=== PATIENT | female | born 1930 | race Two or more races ===

== ENCOUNTER 2018-04-14 14:53 | Emergency (ER) | payer OTHER ==
[~2018-04-14] VITALS: Ht 160 cm; Wt 58.1 kg
[~2018-04-14 14:53] MED LIST: ADALAT CC30 MG PO; APRESOLINE 10MG10 MG PO; ARICEPT10 MG PO; ARICEPT5 MG; ATORVASTATIN CA10 MG; ATROVENT 00.5 MG/2.5 IH; BENZONATATE100 MG PO; Bumex PO; CEFTIN500 MG PO; CLONAZEPAM0.5 MG PO; CLOPIDOGREL BIS75 MG PO; COUMADIN3 MG; COUMAdin PO; COZAAR25 MG; COZAAR50 MG PO; CRESTOR10 MG PO; Cozaar PO; DIABETIC T100 MG/51 PO; DIAZEPAM10 MG PO; ECOTRIN81 MG PO; FAMOTIDINE20 MG/2 M1 IV; FUROSEMIDE40 MG PO; GABAPENTIN100 MG; GUAIFENESI100 MG/52 PO; GUAIFENESIN DM118 ML PO; HEMATINIC W/FOL1 TAB PO; HYDRALAZINE HCL25 MG PO; INTEGRA CAPSUL1 EACH PO; INTEGRA F CAPS1 EACH PO; INTEGRA PLUS C1 EACH PO; ISORDIL10 MG PO; ISOSORBIDE MONO30 MG PO; Intestinex CAP PO; LASIX 20 MG PO; LASIX20 MG PO; LEVOTHYROXINE SO1 GM; LEVOTHYROXINE150 MCG PO; LIPITOR20 MG PO; LOSARTAN POTASS25 MG PO; LOSARTAN POTASS50 MG PO; MAXIMUM D310000 UNIT PO; METFORMIN HCL500 M1; METFORMIN HCL500 MG PO; NEURONTIN300 MG PO; NIFEDIPINE ER30 MG PO; NORVASC 5MG TAB PO; Neurontin PO; OMEPRAZOLE20 M1 PO; OSEL75CA PO; PANTOPRAZOLE SO40 MG PO; POM (MEDICAMENTO EN PHA) PO; PROTONIX40 MG PO; QVAR7.3 G1 IH; SEPTRA DS TABLE1 TAB PO; SERTRALINE HCL25 MG PO; SINGULAIR10 MG; SYNTHROID137 MCG PO; Synthroid PO; TENCON TABLET1 TAB PO; TOPROL XL50 MG; TOPROL XL50 MG PO; Toprol Xl 25MG TAB PO; Tussi-Organidin Dm-S PO; ULTRACET PO; XOPENEX HFA15 GM IH; XOPENEX0.63 MG/3 IH; ZANTAC150 M1; ZANTAC150 MG PO; ZANTAC300 MG PO; ZETIA10 MG PO; ZOLOFT100 MG PO; ZOLOFT25 MG PO; [UNRECOGNIZED DRUG - CODE] PO; [UNRECOGNIZED DRUG - OTHER]; [UNRECOGNIZED DRUG - OTHER] PO
== END 2018-04-14 17:56 | disposition home or self-care (01) ==
LOC: ER 14:53
DX: M25.571 Pain in right ankle and joints of right foot (principal)

== ENCOUNTER 2018-04-30 11:16 | Emergency (ER) | payer OTHER ==
[~2018-04-30] VITALS: Ht 152.4 cm; Wt 56.7 kg
[2018-04-30] MEDS ORDERED: GLIPIZIDE XL5 MG (11:30)
[2018-04-30] MEDS ORDERED: TOPROL XL50 MG (11:30)
[2018-04-30] MEDS ORDERED: GABAPENTIN100 MG (11:30)
[2018-04-30] MEDS ORDERED: PLAVIX75 MG (11:31)
[2018-04-30] MEDS ORDERED: MICRO-K 1010 MEQ (11:31)
[2018-04-30] MEDS ORDERED: MONTELUKAST SOD10 MG (11:31)
[2018-04-30] MEDS ORDERED: DONEPEZIL HCL O10 MG (11:32)
[2018-04-30] MEDS ORDERED: ATORVASTATIN CA20 MG (11:32)
[2018-04-30] MEDS ORDERED: LEVOXYL150 MCG (11:32)
[2018-04-30] MEDS ORDERED: AFEDITAB CR30 MG (11:32)
[2018-04-30] MEDS ORDERED: BUMETANIDE0.5 MG (11:33)
[2018-04-30] MEDS ORDERED: PROTONIX40 MG (11:33)
[2018-04-30] MEDS ORDERED: MAXIMUM D310000 UNIT (11:33)
== END 2018-04-30 14:19 | disposition home or self-care (01) ==
LOC: ER 11:16
DX: M10.031 Idiopathic gout, right wrist (principal)

== ENCOUNTER 2018-05-06 17:20 | Emergency (ER) | payer OTHER ==
[~2018-05-06] VITALS: Ht 152.4 cm; Wt 59.0 kg
[~2018-05-06 17:20] MED LIST changes: +AFEDITAB CR30 MG; +ATORVASTATIN CA20 MG; +BUMETANIDE0.5 MG; +DONEPEZIL HCL O10 MG; +GLIPIZIDE XL5 MG; +LEVOXYL150 MCG; +MAXIMUM D310000 UNIT; +MICRO-K 1010 MEQ; +MONTELUKAST SOD10 MG; +PLAVIX75 MG; +PROTONIX40 MG
== END 2018-05-06 20:07 | disposition home or self-care (01) ==
LOC: ER 17:20
DX: L02.414 Cutaneous abscess of left upper limb (principal); B95.61 Methicillin susceptible Staphylococcus aureus infection as the cause of diseases classified elsewhere

== ENCOUNTER 2018-05-22 10:20 | Emergency (ER) | payer OTHER ==
[~2018-05-22] VITALS: Ht 157.5 cm; Wt 59.0 kg
== END 2018-05-22 14:01 | disposition home or self-care (01) ==
LOC: ER 10:20
DX: R06.02 Shortness of breath (principal)

== ENCOUNTER 2018-05-24 20:46 | Emergency (ER) | payer OTHER ==
[~2018-05-24] VITALS: Ht 154.9 cm; Wt 55.8 kg
[2018-05-25] MEDS ORDERED: XOPENEX0.63 MG/3 IH (03:00)
[2018-05-25] MEDS ORDERED: MEDROLPACK PO (03:00)
[2018-05-25] MEDS ORDERED: TESSALON PERLE100 M1 PO (03:00)
[2018-05-25] MEDS ORDERED: BUDESONIDE0.5 MG/2 M IH (03:00)
== END 2018-05-25 03:16 | disposition home or self-care (01) ==
LOC: ER 20:46
DX: J20.9 Acute bronchitis, unspecified (principal); J06.9 Acute upper respiratory infection, unspecified

== ENCOUNTER 2018-05-26 15:57 | Emergency (ER) | payer OTHER ==
[~2018-05-26] VITALS: Ht 152.4 cm; Wt 59.0 kg
[~2018-05-26 15:57] MED LIST changes: +BUDESONIDE0.5 MG/2 M IH; +MEDROLPACK PO; +TESSALON PERLE100 M1 PO
== END 2018-05-26 16:46 | disposition home or self-care (01) ==
LOC: ER 15:57
DX: L02.414 Cutaneous abscess of left upper limb (principal)

== ENCOUNTER 2018-05-29 15:06 | Emergency (ER) | payer OTHER ==
[~2018-05-29] VITALS: Ht 154.9 cm; Wt 54.4 kg
[2018-05-30] MEDS ORDERED: XOPENEX0.63 MG/3 IH (16:38)
[2018-05-30] MEDS ORDERED: BUDEO.25 IH (16:39)
[2018-05-30] MEDS ORDERED: SINGULAIR10 MG PO (16:40)
[2018-05-30] MEDS ORDERED: GUAIFENESIN DM S5 ML PO (16:44)
[2018-05-30] MEDS ORDERED: ZITHROMAX200 MG PO (16:49)
== END 2018-05-30 17:22 | disposition home or self-care (01) ==
LOC: ER 15:06
DX: J40 Bronchitis, not specified as acute or chronic (principal); J11.1 Influenza due to unidentified influenza virus with other respiratory manifestations

== ENCOUNTER 2018-06-05 13:49 | Emergency (ER) | payer OTHER ==
[~2018-06-05] VITALS: Ht 152.4 cm; Wt 47.6 kg
[~2018-06-05 13:49] MED LIST changes: +BUDEO.25 IH; +GUAIFENESIN DM S5 ML PO; +SINGULAIR10 MG PO; +ZITHROMAX200 MG PO
== END 2018-06-05 18:17 | disposition home or self-care (01) ==
LOC: ER 13:49
DX: J40 Bronchitis, not specified as acute or chronic (principal)

== ENCOUNTER 2018-06-20 11:27 | Outpatient (CLI) | payer OTHER | END 2018-06-20 11:39 | disposition home or self-care (01) | LOC: RAD 501 11:27 | DX: M10.9 Gout, unspecified (principal) ==

== ENCOUNTER 2018-06-22 08:54 | Outpatient (CLI) | payer OTHER | END 2018-06-22 09:13 | disposition home or self-care (01) | LOC: SONOGRAMA 08:54 → MAMO-SONO 09:15 | DX: N18.9 Chronic kidney disease, unspecified (principal) ==

== ENCOUNTER 2018-06-22 09:40 | Outpatient (CLI) | payer OTHER | END 2018-06-22 09:51 | disposition home or self-care (01) | LOC: LAB 09:40 | DX: E83.42 Hypomagnesemia (principal); E83.39 Other disorders of phosphorus metabolism; E83.51 Hypocalcemia; D64.89 Other specified anemias; I10 Essential (primary) hypertension; R80.9 Proteinuria, unspecified; E11.9 Type 2 diabetes mellitus without complications; E78.2 Mixed hyperlipidemia ==

== ENCOUNTER 2018-07-11 12:15 | Emergency (ER) | payer OTHER ==
[~2018-07-11] VITALS: Ht 144.8 cm; Wt 56.7 kg
[2018-07-11] MEDS ORDERED: K-TAB10 MEQ PO (13:10)
[2018-07-11] MEDS ORDERED: SINGULAIR4 M1 (13:11)
[2018-07-11] MEDS ORDERED: DONEPEZIL HCL O10 MG PO (13:11)
[2018-07-11] MEDS ORDERED: CELECOXIB100 MG PO (17:13)
[2018-07-11] MEDS ORDERED: SKELAXIN800 MG PO (17:13)
== END 2018-07-11 17:54 | disposition home or self-care (01) ==
LOC: ER 12:15
DX: M54.2 Cervicalgia (principal)

== ENCOUNTER 2018-07-26 10:25 | Emergency (ER) | payer OTHER ==
[~2018-07-26] VITALS: Ht 154.9 cm; Wt 59.0 kg
[~2018-07-26 10:25] MED LIST changes: +CELECOXIB100 MG PO; +DONEPEZIL HCL O10 MG PO; +K-TAB10 MEQ PO; +SINGULAIR4 M1; +SKELAXIN800 MG PO
[2018-07-26] MEDS ORDERED: ELIQUIS2.5 MG PO (10:41)
[2018-07-26] MEDS ORDERED: ZYLOPRIM100 MG PO (10:42)
== END 2018-07-26 20:34 | disposition home or self-care (01) ==
LOC: ER 10:25
DX: J42 Unspecified chronic bronchitis (principal); R11.0 Nausea

== ENCOUNTER 2018-08-03 14:12 | Emergency (ER) | payer OTHER ==
[~2018-08-03] VITALS: Ht 152.4 cm; Wt 59.0 kg
[~2018-08-03 14:12] MED LIST changes: +ELIQUIS2.5 MG PO; +ZYLOPRIM100 MG PO
[2018-08-04] MEDS ORDERED: PEPCID AC20 MG PO (08:05)
[2018-08-04] MEDS ORDERED: LOPERAMIDE2 M1 PO (08:05)
[2018-08-04] MEDS ORDERED: INTESTINEX680 M1 PO (08:05)
[2018-08-04] MEDS ORDERED: LEVSIN/SL0.125 MG SL (08:05)
== END 2018-08-04 09:06 | disposition home or self-care (01) ==
LOC: ER 14:12
DX: K52.89 Other specified noninfective gastroenteritis and colitis (principal)

== ENCOUNTER 2018-08-09 09:33 | Inpatient (IN) | payer OTHER ==
[~2018-08-09] VITALS: Ht 165.1 cm; Wt 68.0 kg
[~2018-08-09 09:33] MED LIST changes: +INTESTINEX680 M1 PO; +LEVSIN/SL0.125 MG SL; +LOPERAMIDE2 M1 PO; +PEPCID AC20 MG PO
[2018-08-19] MEDS ORDERED: BENZONATATE200 M1 PO (09:51)
[2018-08-19] MEDS ORDERED: Tussi-Organidin Dm-S PO (09:51)
== END 2018-08-19 15:02 | disposition home or self-care (01) | DRG 193 ==
LOC: ER 09:33 → SURH 16:52 → MEDJ 16:52 → ICU-2 16:52 → MEDJ 08-12 18:11 → O/R 08-12 18:59 → SEC-K 08-12 19:05 → SURH 08-13 00:35 → ICU-2 08-13 16:13 → SEC-K 08-14 14:09 → MEDJ 08-14 17:46
PROVIDERS: ADMIT Internal Medicine
PROC: B246ZZZ Ultrasonography of Right and Left Heart (ICD-10-PCS; 2018-08-09)
PROC: 4A033R1 Measurement of Arterial Saturation, Peripheral, Percutaneous Approach (ICD-10-PCS; 2018-08-09)
PROC: 3E0F7GC Introduction of Other Therapeutic Substance into Respiratory Tract, Via Natural or Artificial Opening (ICD-10-PCS; 2018-08-09)
PROC: 5A09457 Assistance with Respiratory Ventilation, 24-96 Consecutive Hours, Continuous Positive Airway Pressure (ICD-10-PCS; principal; 2018-08-10)
PROC: 4A12X4Z Monitoring of Cardiac Electrical Activity, External Approach (ICD-10-PCS; 2018-08-12)
DX: J18.9 Pneumonia, unspecified organism (principal); J96.01 Acute respiratory failure with hypoxia; I50.23 Acute on chronic systolic (congestive) heart failure; J45.31 Mild persistent asthma with (acute) exacerbation; N18.4 Chronic kidney disease, stage 4 (severe); N17.8 Other acute kidney failure; J44.1 Chronic obstructive pulmonary disease with (acute) exacerbation; G30.0 Alzheimer's disease with early onset; F02.80 Dementia in other diseases classified elsewhere, unspecified severity, without behavioral disturbance, psychotic disturbance, mood disturbance, and anxiety; Z79.4 Long term (current) use of insulin; I11.0 Hypertensive heart disease with heart failure; E11.22 Type 2 diabetes mellitus with diabetic chronic kidney disease; I12.9 Hypertensive chronic kidney disease with stage 1 through stage 4 chronic kidney disease, or unspecified chronic kidney disease; D63.1 Anemia in chronic kidney disease; E87.6 Hypokalemia; I48.2 Chronic atrial fibrillation; Z79.01 Long term (current) use of anticoagulants; Z95.2 Presence of prosthetic heart valve; Z95.4 Presence of other heart-valve replacement

== ENCOUNTER 2018-08-26 12:55 | Emergency (ER) | payer OTHER ==
[~2018-08-26] VITALS: Ht 152.4 cm; Wt 57.2 kg
[~2018-08-26 12:55] MED LIST changes: +BENZONATATE200 M1 PO
[2018-08-26] MEDS ORDERED: INTESTINEX680 M1 PO (17:06)
== END 2018-08-26 18:17 | disposition home or self-care (01) ==
LOC: ER 12:55
DX: K52.89 Other specified noninfective gastroenteritis and colitis (principal); R60.0 Localized edema; R06.02 Shortness of breath

== ENCOUNTER 2018-09-02 18:00 | Inpatient (IN) | payer OTHER ==
[~2018-09-02] VITALS: Ht 157.5 cm; Wt 56.7 kg
--- NOTE | 2018-09-02 18:07 | NUR ---
SE RECIBE PTE ALERTA Y ORIENTADA X3,EN AMBULANCIA REFIERE SENTIRSE CORTA DE RESPIRACION ,LLEGA CANALIZADA EN LA MANO DERECHA C 0.9% ANGIO 20 ,ESTUVO DIANA EN LA NICHO DE ER ,POR LOS MISMOS SINTOMAS ES PTE DE COPD.
--- NOTE | 2018-09-02 18:25 | NUR ---
SE NOTIFICA ABG A MR BUCKLEYERO.
--- NOTE | 2018-09-02 23:29 | NUR ---
SE RECIBE PTE ALERTA Y ORIENTADA EN PERSONA EN CAMA CON BARANDAS ELEVADAS. SE RECIBE PTE CON CANULA NASAL A 3L. SE RECIBE PTE CANALIZADA AREA KEVEN DE EDEMA Y DE ENROJECIMIENTO. SE RECIBE PTE CON CHAPARRO DRANDO 800ML SE ORINA COLOR AMARILLO PROSPER. PTE EN ESPERA DE RE EVALUACION MEDICA.
== END 2018-09-28 08:23 | disposition expired | DRG 291 ==
LOC: ER 18:00 → MEDJ 09-03 07:06 → ICU-2 09-03 07:06 → SEC-K 09-05 14:17 → MEDI 09-05 15:28 → MEDJ 09-07 21:45
PROVIDERS: ADMIT Internal Medicine
PROC: B246ZZZ Ultrasonography of Right and Left Heart (ICD-10-PCS; principal; 2018-09-03)
PROC: 3E0F7GC Introduction of Other Therapeutic Substance into Respiratory Tract, Via Natural or Artificial Opening (ICD-10-PCS; 2018-09-03)
PROC: 4A033R1 Measurement of Arterial Saturation, Peripheral, Percutaneous Approach (ICD-10-PCS; 2018-09-03)
PROC: 4A12X4Z Monitoring of Cardiac Electrical Activity, External Approach (ICD-10-PCS; 2018-09-05)
PROC: 30233N1 Transfusion of Nonautologous Red Blood Cells into Peripheral Vein, Percutaneous Approach (ICD-10-PCS; 2018-09-07)
PROC: B34HZZZ Ultrasonography of Right Upper Extremity Arteries (ICD-10-PCS; 2018-09-10)
PROC: 30233R1 Transfusion of Nonautologous Platelets into Peripheral Vein, Percutaneous Approach (ICD-10-PCS; 2018-09-15)
PROC: B54PZZZ Ultrasonography of Bilateral Upper Extremity Veins (ICD-10-PCS; 2018-09-15)
PROC: B34JZZZ Ultrasonography of Left Upper Extremity Arteries (ICD-10-PCS; 2018-09-15)
PROC: 06HM33Z Insertion of Infusion Device into Right Femoral Vein, Percutaneous Approach (ICD-10-PCS; 2018-09-16)
PROC: B020ZZZ Computerized Tomography (CT Scan) of Brain (ICD-10-PCS; 2018-09-19)
DX: I13.0 Hypertensive heart and chronic kidney disease with heart failure and stage 1 through stage 4 chronic kidney disease, or unspecified chronic kidney disease (principal); I50.43 Acute on chronic combined systolic (congestive) and diastolic (congestive) heart failure; I33.0 Acute and subacute infective endocarditis; D65 Disseminated intravascular coagulation [defibrination syndrome]; R65.11 Systemic inflammatory response syndrome (SIRS) of non-infectious origin with acute organ dysfunction; J96.01 Acute respiratory failure with hypoxia; I61.5 Nontraumatic intracerebral hemorrhage, intraventricular; G92 Toxic encephalopathy; B37.1 Pulmonary candidiasis; J11.08 Influenza due to unidentified influenza virus with specified pneumonia; N18.4 Chronic kidney disease, stage 4 (severe); N39.0 Urinary tract infection, site not specified; N17.8 Other acute kidney failure; J45.31 Mild persistent asthma with (acute) exacerbation; J44.1 Chronic obstructive pulmonary disease with (acute) exacerbation; E87.1 Hypo-osmolality and hyponatremia; E87.0 Hyperosmolality and hypernatremia; L03.114 Cellulitis of left upper limb; T82.524A Displacement of infusion catheter, initial encounter; J90 Pleural effusion, not elsewhere classified; R78.81 Bacteremia; I11.0 Hypertensive heart disease with heart failure; E11.22 Type 2 diabetes mellitus with diabetic chronic kidney disease; B95.61 Methicillin susceptible Staphylococcus aureus infection as the cause of diseases classified elsewhere; B95.2 Enterococcus as the cause of diseases classified elsewhere; D63.1 Anemia in chronic kidney disease; E11.65 Type 2 diabetes mellitus with hyperglycemia; T36.8X1A Poisoning by other systemic antibiotics, accidental (unintentional), initial encounter; B96.89 Other specified bacterial agents as the cause of diseases classified elsewhere; B96.5 Pseudomonas (aeruginosa) (mallei) (pseudomallei) as the cause of diseases classified elsewhere; Z95.0 Presence of cardiac pacemaker; Z79.4 Long term (current) use of insulin